=== PATIENT | male | born 1995 | race Hispanic/Latino ===

== ENCOUNTER 2019-04-14 09:59 | Emergency (ER) | payer OTHER ==
[2019-04-14] MEDS ORDERED: IBUPROFEN 600 MG TABLET ONE (11:05)
== END 2019-04-14 11:38 | disposition home or self-care (01) ==
LOC: EDH 09:59
DX: S93.401A Sprain of unspecified ligament of right ankle, initial encounter (principal); Z88.0 Allergy status to penicillin; Z88.1 Allergy status to other antibiotic agents; X50.1XXA Overexertion from prolonged static or awkward postures, initial encounter; Y93.89 Activity, other specified; Y92.89 Other specified places as the place of occurrence of the external cause; Y99.8 Other external cause status
CPT/HCPCS: 73600; 73630